=== PATIENT | male | born 1965 | race Caucasian/White ===

== ENCOUNTER 2021-03-31 12:36 | Inpatient (IN) | payer OTHER ==
[~2021-03-31] VITALS: Ht 175.3 cm; Wt 92.1 kg
[2021-03-31] MEDS ORDERED: IV NORMAL SALINE 1000 ML BAG IV ONE (12:45)
[2021-03-31] MEDS ORDERED: methylPREDNISolone SOD SUCC 125 MG/2 ML VIAL IV ONE (12:45)
[2021-03-31] MEDS ORDERED: IPRATROPIUM BROMIDE 0.5 MG/2.5 ML NEBU NEB ONE (12:45)
[2021-03-31] MEDS ORDERED: ALBUTEROL SULFATE 2.5 MG/3 ML NEBU NEB ONE ×2 (12:45→16:45)
[2021-03-31] MEDS ORDERED: FLUT1DIS27 INH (12:59)
[2021-03-31] MEDS ORDERED: LISINOPRIL PO (12:59)
--- NOTE | 2021-03-31 13:05 | NUR ---
Pt is in room #2a. dr Rodriguez evaluated the pt.
[2021-03-31] MEDS ORDERED: ALBUTEROL SULFATE 2.5 MG/3 ML NEBU ONE ×2 (13:07→16:46)
[2021-03-31] MEDS ORDERED: IPRATROPIUM BROMIDE 0.5 MG/2.5 ML NEBU ONE (13:07)
[2021-03-31 13:09] LABS: HEMATOCRIT 39.4 % (36.7-47.1); MEAN CORPUSCULAR HEMOGLOBIN 28.5 uug (23.8-33.4); PLATELET COUNT (AUTO) 331 K/uL (152-348)
[2021-03-31 13:16] LABS: CREATININE 1.1 mg/dL (0.6-1.3); POTASSIUM 3.6 mmol/L (3.5-5.1)
[2021-03-31] MEDS ORDERED: methylPREDNISolone SOD SUCC 125 MG/2 ML VIAL ONE (13:21)
[2021-03-31 13:26] LABS: BILIRUBIN,DIRECT 0.1 mg/dL (0.0-0.2); BILIRUBIN,TOTAL 0.3 mg/dL (0.2-1.0); TOTAL PROTEIN, SERUM 7.4 g/dL (6.4-8.2)
[2021-03-31] MEDS ORDERED: AZITHROMYCIN IV 500 MG in IV DEXTROSE 5% 250 ML IV ONE (15:00)
[2021-03-31] MEDS ORDERED: CEFTRIAXONE 1 G in IV DEXTROSE 5% 50 ML IV ONE (15:00)
[2021-03-31] MEDS ORDERED: CEFTRIAXONE /D5W 50ML IVPB **ER PYXIS IV ONE (15:15)
[2021-03-31] MEDS ORDERED: AZITHROMYCIN 500MG/ D5W 250ML IVPB **ER PYXIS ONLY IV ONE (15:15)
--- NOTE | 2021-03-31 18:58 | NUR ---
RPORT GIVEN TO THE RESIDENT CARE MANAGER RN RN.
[2021-03-31] MEDS ORDERED: HYDROCODONE/APAP 5-325MG TABLET PO PRN (20:45)
[2021-03-31] MEDS ORDERED: CLONIDINE HCL 0.1 MG TABLET PO ONE (20:45)
[2021-03-31] MEDS ORDERED: ONDANSETRON 4 MG/2 ML VIAL IV PRN (20:45)
[2021-03-31] MEDS ORDERED: ACETAMINOPHEN 325 MG TABLET PO PRN (20:45)
[2021-03-31] MEDS ORDERED: MAGNESIUM HYDROXIDE 30 ML LIQUID UDC PO PRN (20:45)
[2021-03-31] MEDS ORDERED: Z GUARD REMEDY PASTE 57 GM TUBE TOP PRN (20:45)
--- NOTE | 2021-03-31 20:50 | NUR ---
LEISAD made aware of patient systolic blood pressure 170. Expecting order for clonidine 0.2mg PO.
[2021-03-31] MEDS ORDERED: CLONIDINE HCL 0.2 MG TABLET ONE (20:55)
--- NOTE | 2021-03-31 21:01 | NUR ---
MARCIAL Montoya updated with patient blood pressure.
[2021-03-31 21:35] VITALS: BP 162/105
--- NOTE | 2021-03-31 21:38 | NUR ---
Patient transported to inpatient by Clinical Esthetician.
--- NOTE | 2021-03-31 21:40 | NUR ---
RECEIVED PT FROM ER VIA [facility]. UNDER THE CARE OF DR. MELISSA VICTORIA. DX: COPD EXACERBATION. INTERMEDIATE ASSESSMENT DONE.PT ON 5L NASAL CANNULA. ADMISSION PROCESS AND CARE PLAN INITIATED. SAFETY AND COMFORT PROVIDED. WILL CONTINUE TO MONITOR.
[2021-03-31 21:56] LABS: THYROID STIMULATING HORMONE 0.265 mIU/mL (0.358-3.740)
[2021-03-31] MEDS: methylPREDNISolone SOD SUCC 40 MG/ML VIAL IV SCH (22:18)
[2021-03-31] MEDS: BUMETANIDE 1 MG/4 ML VIAL IV SCH (22:19)
[2021-03-31] MEDS: DOCUSATE SODIUM 100 MG CAPSULE PO SCH (22:21)
[2021-03-31] MEDS: LISINOPRIL 5 MG TABLET PO SCH (22:22)
[2021-03-31] MEDS: ENOXAPARIN SODIUM 40 MG/0.4 ML DISP.SYRIN SQ SCH (22:22)
[2021-03-31] MEDS ORDERED: hydrALAZINE HCL 20 MG/1 ML VIAL IV PRN (22:30)
[2021-03-31 22:46] LABS: *BILIRUBIN,URIN NEGATIVE (NEGATIVE); *CLARITY,URINE CLEAR (CLEAR); *COLOR,URINE YELLOW (YELLOW); *KETONES,URINE NEGATIVE (NEGATIVE); LEUKOCYTE ESTERASE ,URINE NEGATIVE (NEGATIVE); NITRITE, URINE NEGATIVE (NEGATIVE); PH,URINE 5.5 (5.0-8.0); UGLUCOSE NEGATIVE (NEGATIVE)
[2021-03-31 22:50] LABS: *BLOOD, URINE TRACE (NEGATIVE)
[2021-03-31] MEDS: AMLODIPINE 10 MG TABLET PO SCH (22:51)
[2021-03-31] MEDS: ZOLPIDEM 5 MG TABLET PO PRN (22:51)
[2021-03-31 22:56] LABS: BACTERIA,URINE NONE SEEN /HPF (NONE SEEN); SQUAMOUS EPITHELIAL CELL,UR MODERATE /HPF (NONE SEEN)
[2021-03-31] MEDS: ALBUTEROL SULFATE 2.5 MG/ 0.5 ML NEBU NEB SCH (23:35)
[2021-03-31] MEDS: IPRATROPIUM BROMIDE 0.5 MG/2.5 ML NEBU NEB SCH (23:35)
[2021-04-01] VITALS: BP 156/103
[2021-04-01 04:03] VITALS: BP 159/87
[2021-04-01] MEDS: IPRATROPIUM BROMIDE 0.5 MG/2.5 ML NEBU NEB SCH ×6 (04:13→23:30)
[2021-04-01] MEDS: ALBUTEROL SULFATE 2.5 MG/ 0.5 ML NEBU NEB SCH ×6 (04:13→23:30)
[2021-04-01 06:44] LABS: HEMATOCRIT 41.8 % (36.7-47.1); MEAN CORPUSCULAR VOLUME 86.8 fL (73.0-96.2); PLATELET COUNT (AUTO) 336 K/uL (152-348)
--- NOTE | 2021-04-01 06:44 | NUR ---
NOTIFY MACHINE FELLER REGARDING PT HAVING 6BEATS VTACH AND SINUS TACHYCARDIA AFTERWARDS. OXYGEN DROPPED TO 84%.
--- NOTE | 2021-04-01 06:49 | NUR ---
AMEENA MENDIETA SIMULATION ENGINEER ORDERED CARDIOLOGY CONSULT AND ABG CONSULT.
[2021-04-01] MEDS: PANTOPRAZOLE SODIUM 40 MG TABLET.DR PO SCH (06:50)
[2021-04-01] MEDS: methylPREDNISolone SOD SUCC 40 MG/ML VIAL IV SCH ×3 (06:50→21:01)
--- NOTE | 2021-04-01 07:00 | NUR ---
Pt slept intermittently. Pt in no acute distress. Iv intact. Pt WAS PUT ON FACE MASK. Abg being drawn. Prescribed medication given and pt tolerated it well. PT had tendency to take off his oxygen.Pt refused his Protonix. Safety and comfort provided. All needs are met. Will endorse to incoming nurse for continuity of care.
[2021-04-01 07:26] LABS: BILIRUBIN,TOTAL 0.3 mg/dL (0.2-1.0); CREATININE 0.9 mg/dL (0.6-1.3); POTASSIUM 4.1 mmol/L (3.5-5.1); TOTAL PROTEIN, SERUM 8.4 g/dL (6.4-8.2)
[2021-04-01 07:28] LABS: ABG BASE EXCESS 0.6 mmol/L; ABG PCO2 69.9 mmHg (35.0-45.0); ABG PO2 185.7 mmHg (75.0-100.0); ABG SITE LEFT RADIAL; ABG TOTAL HEMOGLOBIN 14.9 G/dL (13.5-18.0); COHb 0.8 % (0.5-1.5); MetHb 0.2 % (0.0-1.5); O2Hb 98.4 % (94.0-97.0)
--- NOTE | 2021-04-01 08:00 | NUR ---
RECEIVED PATIENT IN BED WITH PERIODS OF DISORIENTATION AND CONFUSION, RR-25/MIN, SATURATING 88-90%. ABG results noted and dr alas made aware. patient to continue on BI-PAP to maintain saturation between 90-94%. sr/st on monitor.
--- NOTE | 2021-04-01 08:30 | NUR ---
PATIENT OFF BI-PAP FOR BREAKFAST, PATIENT TOLERATED SITTING POSITION AND ATE 100% OF FOOD PORTION. CLOSELY MONITORED
[2021-04-01] MEDS: ASPIRIN EC 81 MG TABLET.DR PO SCH (08:56)
[2021-04-01] MEDS: BUMETANIDE 1 MG/4 ML VIAL IV SCH ×2 (08:57→17:05)
[2021-04-01] MEDS: LISINOPRIL 5 MG TABLET PO SCH ×2 (08:57→20:15)
[2021-04-01] MEDS: AMLODIPINE 10 MG TABLET PO SCH (08:57)
[2021-04-01] MEDS ORDERED: FLUTICASONE/SALMETEROL 100/50 1 INH DISK.W.DEV INH SCH (09:00)
[2021-04-01] MEDS: METOPROLOL TARTRATE 25 MG TABLET PO SCH ×2 (09:05→20:15)
[2021-04-01] MEDS: DOXYCYCLINE HYCLATE IV 100 MG in IV DEXTROSE 5% 100 ML IV SCH ×2 (09:05→21:09)
[2021-04-01] MEDS: FLUTICASONE/VILANTEROL 1 EACH BLST.W.DEV INH SCH (09:05)
--- NOTE | 2021-04-01 10:30 | NUR ---
seen by dr bergeron advise that patient be moved to isolation as PUI pending PCR results
--- NOTE | 2021-04-01 11:00 | NUR ---
IN-LINE TX NOT GIVEN DUE TO NEW PUI STATUS. PLACED BACK ON BIPAP WITH ORDERED SETTINGS.
[2021-04-01 12:22] VITALS: BP 135/85
[2021-04-01] MEDS: CEFTRIAXONE 1 G in IV DEXTROSE 5% 50 ML IV SCH (14:27)
[2021-04-01 15:45] LABS: *AMPHETAMINE, URINE POSITIVE (NEGATIVE); *CANNABINOID, URINE POSITIVE (NEGATIVE); *COCCAINE, URINE NEGATIVE (NEGATIVE); *OPIATE, URINE NEGATIVE (NEGATIVE); *PHENCYCLIDINE SCREEN,URINE NEGATIVE (NEGATIVE)
[2021-04-01 16:00] VITALS: BP 122/68
--- NOTE | 2021-04-01 16:09 | NUR ---
report given to CHARIS
--- NOTE | 2021-04-01 17:15 | NUR ---
Received a patient from [facility] around 16:00. Per report, patient is A/O X 3 to person, place. Pt. affect is cooperative. Patient is in 4 liters of oxygen, 94% of saturation. V- tach at 06:15 am, currently stable. Xray chest results showing cardio megaly, enlargement of the cardiac silhouette. Arterial blood gas complete, CO2 69.9 high, and O2 185.7 high. Ambulates without assistance. Continent of bladder and bowel. Butemide 1 mg bid for edema as prescribed. Fall and safety precautions implemented.
--- NOTE | 2021-04-01 19:30 | NUR ---
Received patient in bed, in semi fowlers position. Patient is in distress, SOB , shallow breathing noted and perspiration, 02 sat 82-84%. He is a mouth breather, NC removed and placed on a simple mask, 02 increased from 4L to 5 L, 02 sats improved to 94-95. IV to right FA , intact and patent. He is asleep and easily arousable. Alert to self and situation. Continues in telemetry, NSR 100-103. Safety measures initiated, call light within reach.
[2021-04-01] MEDS: DOCUSATE SODIUM 100 MG CAPSULE PO SCH (20:14)
[2021-04-01] MEDS: ENOXAPARIN SODIUM 40 MG/0.4 ML DISP.SYRIN SQ SCH (20:18)
[2021-04-01 20:20] VITALS: BP 157/99
--- NOTE | 2021-04-01 23:00 | NUR ---
Patient is doing well, able to decrease 02 to 4L/ min and change back to NC. 02sats 92-93. Still noted with occasional moist cough and perspiration. States he perspires heavily normally.
[2021-04-02 00:15] VITALS: BP 150/85
--- NOTE | 2021-04-02 02:00 | NUR ---
Patient is doing well, able to decrease 02 to 3L/ min via NC- 02sats 90-93%.
[2021-04-02] MEDS: ALBUTEROL SULFATE 2.5 MG/ 0.5 ML NEBU NEB SCH ×6 (02:36→22:42)
[2021-04-02] MEDS: IPRATROPIUM BROMIDE 0.5 MG/2.5 ML NEBU NEB SCH ×6 (02:36→22:42)
[2021-04-02 04:26] VITALS: BP 160/95
--- NOTE | 2021-04-02 05:58 | NUR ---
Slept intermittently for remainder of shift. Still noted with poor concentration, Denies any pain, SOB is improved. Continues to sat 90-91% on 3L o2 via NC. Continuous [address] On Telemetry, NSR HR 100-105. Gown and linen change provided fro perspiration, no fever. Patient asked fro snacks 2 times this shift. Call light within reach.
[2021-04-02] MEDS: methylPREDNISolone SOD SUCC 40 MG/ML VIAL IV SCH ×3 (06:04→21:17)
[2021-04-02] MEDS: PANTOPRAZOLE SODIUM 40 MG TABLET.DR PO SCH (06:04)
--- NOTE | 2021-04-02 06:30 | NUR ---
Patient 02 saturation is 94-95% on 3L/min via NC. Able to decrease 02 to 2L/min and patient saturation remains unchanged. NO changes in mental status. ABG pending for this AM.
[2021-04-02 07:44] LABS: ABG BASE EXCESS 6.5 mmol/L; ABG HCO3 32.1 mmol/L; ABG PCO2 49.4 mmHg (35.0-45.0); ABG PH 7.431 (7.350-7.450); ABG PO2 61.8 mmHg (75.0-100.0); ABG SITE RIGHT BRACHIAL; ABG TOTAL HEMOGLOBIN 14.7 G/dL (13.5-18.0); COHb 0.5 % (0.5-1.5); MetHb 0.1 % (0.0-1.5); O2Hb 91.2 % (94.0-97.0); VENT MODE Nasal Cannula
[2021-04-02 08:00] VITALS: BP 168/100
[2021-04-02] MEDS: FLUTICASONE/VILANTEROL 1 EACH BLST.W.DEV INH SCH (09:00)
[2021-04-02] MEDS: ASPIRIN EC 81 MG TABLET.DR PO SCH (09:39)
[2021-04-02] MEDS: BUMETANIDE 1 MG/4 ML VIAL IV SCH (09:39)
[2021-04-02] MEDS: DOXYCYCLINE HYCLATE IV 100 MG in IV DEXTROSE 5% 100 ML IV SCH ×2 (09:42→21:32)
[2021-04-02] MEDS: METOPROLOL TARTRATE 25 MG TABLET PO SCH ×2 (09:56→20:29)
[2021-04-02] MEDS: LISINOPRIL 5 MG TABLET PO SCH ×2 (09:56→20:29)
[2021-04-02] MEDS: AMLODIPINE 10 MG TABLET PO SCH (09:56)
[2021-04-02 12:00] VITALS: BP 138/79
[2021-04-02 14:06] LABS: A/G RATIO 0.6 (0.7-1.7); ALBUMIN 2.5 g/dL (2.9-4.4); ALPHA-1-GLOBULIN 0.4 g/dL (0.0-0.4); BETA GLOBULIN 1.1 g/dL (0.7-1.3); GAMMA GLOBULIN 1.7 g/dL (0.4-1.8); GLOBULIN, TOTAL 4.3 g/dL (2.2-3.9); M-SPIKE Not Observed g/dL (Not Observed)
--- NOTE | 2021-04-02 14:26 | NUR ---
Pt is a/o x 2, intermittently sleeping thus far. Pt presents with Normal sinus rhythm at this time, saturating 93-94% on 2 L NC. Patients PCR is currently pending, echo completed. No signs of acute distress, no complaint of pain or discomfort at this time. MRSA swab sent to lab from both nares. Sputum culture pending, educated client to spit up into container when expectorant comes up from coughing. Call light within reach, Will continue to monitor.
[2021-04-02] MEDS: CEFTRIAXONE 1 G in IV DEXTROSE 5% 50 ML IV SCH (14:44)
[2021-04-02 16:00] VITALS: BP 136/81
--- NOTE | 2021-04-02 16:35 | NUR ---
Pt has been titrated to 1.5L NC, saturating 91-92%. per Dr Medina, titrate slowly and maintain O2 saturation between 88-92%
[2021-04-02 16:54] LABS: HEMATOCRIT 43.1 % (36.7-47.1); MEAN CORPUSCULAR VOLUME 85.7 fL (73.0-96.2); PLATELET COUNT (AUTO) 361 K/uL (152-348)
[2021-04-02 17:06] LABS: ALANINE AMINOTRANSFERASE 82 U/L (16-63); ALKALINE PHOSPHATASE 128 U/L (50-136); ASPARTATE AMINOTRANSFERASE 56 U/L (15-37); BILIRUBIN,DIRECT < 0.1 mg/dL (0.0-0.2); BILIRUBIN,TOTAL 0.3 mg/dL (0.2-1.0); CARBON DIOXIDE 34 mmol/L (21-32); CHLORIDE 99 mmol/L (98-107); CREATININE 1.1 mg/dL (0.6-1.3); GLUCOSE 156 mg/dL (74-106); POTASSIUM 3.9 mmol/L (3.5-5.1); UREA NITROGEN, BLOOD 33 mg/dL (7-18)
[2021-04-02 17:54] LABS: BAND % (MANUAL) 2 % (0-10); LYMPHOCYTES % (MANUAL) 7 % (20-40); MONOCYTES % (MANUAL) 6 % (2-10); NEUTROPHILS % (MANUAL) 85 % (42-75)
--- NOTE | 2021-04-02 17:55 | NUR ---
pt has reported critical lab value: WBC 30.3. MD notified.
--- NOTE | 2021-04-02 19:30 | NUR ---
Patient is tele monitor, showing sinus rhythm with HR of 95bpm.
--- NOTE | 2021-04-02 19:30 | NUR ---
Received patient lying in bed. AAOx2-3. On 1.5L O2 via nasal cannula, saturating at 93%. Patient is noted as a mouth breather, denies SOB, chest pain or dizziness. IV on R F.A intact and patent. Instructed patient to expectorate for phlegm for sputum culture, when urge to cough occurs. Safety and comfort measures initiated. Bed in locked position, call light button and frequently used items within reach.
[2021-04-02] MEDS: DOCUSATE SODIUM 100 MG CAPSULE PO SCH (20:28)
[2021-04-02] MEDS: ENOXAPARIN SODIUM 40 MG/0.4 ML DISP.SYRIN SQ SCH (20:32)
[2021-04-02 20:46] VITALS: BP 132/87
--- NOTE | 2021-04-02 22:30 | NUR ---
Patient complained of right arm pain, assessed IV site, appears infiltrated. Attempted to reinsert, however, unsuccessful. Called ER for assistance.
--- NOTE | 2021-04-02 23:40 | NUR ---
Notified WINDLASSER composite bond worker regarding multiple unsuccessful attempts to reinsert IV. WINDLASSER ordered for midline insertion. Called nursing musical instrument supervisor, she advised midline insertion nurse unable tonight. Might reinsert tomorrow.
[2021-04-03] VITALS (7 sets, daily range): BP systolic 142–173; BP diastolic 78–109
--- NOTE | 2021-04-03 00:56 | NUR ---
Reinserted IV access on R hand, gauge 22, intact and patent.
[2021-04-03] MEDS: ALBUTEROL SULFATE 2.5 MG/ 0.5 ML NEBU NEB SCH ×7 (02:32→23:24)
[2021-04-03] MEDS: IPRATROPIUM BROMIDE 0.5 MG/2.5 ML NEBU NEB SCH ×7 (02:32→23:24)
--- NOTE | 2021-04-03 02:45 | NUR ---
Collected patient's expectorate for sputum culture, sent to lab for review.
[2021-04-03] MEDS: methylPREDNISolone SOD SUCC 40 MG/ML VIAL IV SCH ×3 (05:10→21:27)
[2021-04-03] MEDS: PANTOPRAZOLE SODIUM 40 MG TABLET.DR PO SCH (06:15)
--- NOTE | 2021-04-03 06:50 | NUR ---
Patient slept intermittently through the night, with episodes of labored breathing. O2 titrated down to 1L, via NC, saturating 88-92%.On tele monitor showing, sinus rhythm with episodes of sinus tachycardia with HR ranging from 96-102bpm. Patient was noted to have an elevated blood pressure of 173/109, PRN apresoline IV was given as ordered, now at 152/84mmHg IV access on right hand still patent and intact. All needs were attended to and met. Safety and comfort measures were maintained. Will endorse to dayshift nurse.
[2021-04-03 06:54] LABS: MEAN CORPUSCULAR HEMOGLOBIN 28.2 uug (23.8-33.4); MEAN CORPUSCULAR VOLUME 85.7 fL (73.0-96.2); PLATELET COUNT (AUTO) 384 K/uL (152-348)
[2021-04-03 07:17] LABS: CREATININE 1.2 mg/dL (0.6-1.3); POTASSIUM 3.7 mmol/L (3.5-5.1)
--- NOTE | 2021-04-03 08:05 | NUR ---
Pt received awake in his room, disheveled, irritable, pulled out his hep lock line. Pt is A/O x3. Pt is noted to have cough and wheezing. Pt periodically takes off his oxygen canula and disconnects tele monitor. Pt is reminded of importance to be monitored.
[2021-04-03 08:08] LABS: LYMPHOCYTES % (MANUAL) 5 % (20-40); MONOCYTES % (MANUAL) 1 % (2-10); NEUTROPHILS % (MANUAL) 89 % (42-75)
[2021-04-03 08:26] LABS: ABG BASE EXCESS 6.5 mmol/L; ABG HCO3 29.9 mmol/L; ABG PCO2 38.4 mmHg (35.0-45.0); ABG PH 7.509 (7.350-7.450); ABG PO2 52.6 mmHg (75.0-100.0); ABG SITE LEFT RADIAL; ABG TOTAL HEMOGLOBIN 16.6 G/dL (13.5-18.0); COHb 0.6 % (0.5-1.5); MetHb 0.1 % (0.0-1.5); O2Hb 88.6 % (94.0-97.0); VENT MODE ROOM AIR
[2021-04-03] MEDS: FLUTICASONE/VILANTEROL 1 EACH BLST.W.DEV INH SCH (09:00)
[2021-04-03] MEDS ORDERED: METOPROLOL TARTRATE 25 MG TABLET PO ONE (09:10)
[2021-04-03] MEDS: DOXYCYCLINE HYCLATE IV 100 MG in IV DEXTROSE 5% 100 ML IV SCH ×2 (09:32→20:18)
[2021-04-03] MEDS: ASPIRIN EC 81 MG TABLET.DR PO SCH (09:32)
[2021-04-03] MEDS: LISINOPRIL 5 MG TABLET PO SCH ×2 (09:43→20:18)
[2021-04-03] MEDS: AMLODIPINE 10 MG TABLET PO SCH (09:44)
[2021-04-03] MEDS ORDERED: POTASSIUM CHLORIDE 20 MEQ TAB.PRT.SR PO ONE ×2 (11:00→15:00)
[2021-04-03] MEDS ORDERED: ACETAzolamide SODIUM 500 MG VIAL IV SCH (11:00)
--- NOTE | 2021-04-03 11:53 | NUR ---
PT was noted to be throwing things around his room, slamming drawers and yelling and cusing.
[2021-04-03] MEDS ORDERED: ALPRAZOLAM 0.5 MG TABLET PO PRN (13:15)
[2021-04-03] MEDS: CEFTRIAXONE 1 G in IV DEXTROSE 5% 50 ML IV SCH (15:27)
[2021-04-03] MEDS: METOPROLOL TARTRATE 25 MG TABLET PO SCH (20:17)
[2021-04-03] MEDS: DOCUSATE SODIUM 100 MG CAPSULE PO SCH (20:17)
[2021-04-03] MEDS: ENOXAPARIN SODIUM 40 MG/0.4 ML DISP.SYRIN SQ SCH (20:20)
--- NOTE | 2021-04-03 21:14 | NUR ---
Patient in bed awake alert x4.Calm no s/s of distress noted. O2 at 2LPM va NC saturating at 98 %.Midline on left upper arm paten and intact.Infused IV ATB as ordered. No a/r noted.NSR on tele.Instructed patient not to disconnect Tele. Verbalized understanding.Patient requesting for his Ambien.Med given.will continue to monitor.
[2021-04-03] MEDS: ZOLPIDEM 5 MG TABLET PO PRN (23:22)
[2021-04-04] VITALS: BP 129/75
[2021-04-04] MEDS: ALBUTEROL SULFATE 2.5 MG/ 0.5 ML NEBU NEB SCH ×6 (03:30→23:30)
[2021-04-04] MEDS: IPRATROPIUM BROMIDE 0.5 MG/2.5 ML NEBU NEB SCH ×6 (03:30→23:30)
[2021-04-04] MEDS: methylPREDNISolone SOD SUCC 40 MG/ML VIAL IV SCH ×2 (05:06→20:46)
[2021-04-04 05:28] VITALS: BP 141/89
[2021-04-04] MEDS: PANTOPRAZOLE SODIUM 40 MG TABLET.DR PO SCH (06:06)
[2021-04-04 06:51] LABS: HEMATOCRIT 47.6 % (36.7-47.1); MEAN CORPUSCULAR HEMOGLOBIN 28.2 uug (23.8-33.4); MEAN CORPUSCULAR VOLUME 86.6 fL (73.0-96.2); PLATELET COUNT (AUTO) 436 K/uL (152-348)
[2021-04-04 07:25] LABS: CREATININE 1.2 mg/dL (0.6-1.3); MAGNESIUM 2.6 mg/dL (1.8-2.4); PHOSPHOROUS 5.3 mg/dL (2.5-4.9); POTASSIUM 4.7 mmol/L (3.5-5.1)
--- NOTE | 2021-04-04 07:30 | NUR ---
Received patient report from table games shift manager nurse. Arrived to patient resting in bed, with no apparent signs of distress or discomfort. Patient is awake, alert, and oriented x 4. IV site is intact and patent. 2 L of Oxygen via Nasal Canula saturating at 91-93%. Bed left in lowest position with call light within reach. Will continue to monitor patient throughout shift.
[2021-04-04 07:51] LABS: ABG BASE EXCESS -1.2 mmol/L; ABG HCO3 23.1 mmol/L; ABG PCO2 37.8 mmHg (35.0-45.0); ABG PH 7.404 (7.350-7.450); ABG PO2 74.7 mmHg (75.0-100.0); ABG SITE RIGHT RADIAL; ABG TOTAL HEMOGLOBIN 16.5 G/dL (13.5-18.0); COHb 0.5 % (0.5-1.5); MetHb 0.2 % (0.0-1.5); O2Hb 94.1 % (94.0-97.0); VENT MODE Nasal Cannula
[2021-04-04 07:53] LABS: BAND % (MANUAL) 1 % (0-10); LYMPHOCYTES % (MANUAL) 11 % (20-40); METAMYELOCYTES % 2 % (0-1); MONOCYTES % (MANUAL) 1 % (2-10); MYELOCYTES % 3 % (0-0); NEUTROPHILS % (MANUAL) 82 % (42-75)
[2021-04-04] MEDS: ASPIRIN EC 81 MG TABLET.DR PO SCH (09:03)
[2021-04-04] MEDS: DOXYCYCLINE HYCLATE IV 100 MG in IV DEXTROSE 5% 100 ML IV SCH ×2 (09:06→20:46)
[2021-04-04] MEDS: METOPROLOL TARTRATE 25 MG TABLET PO SCH ×2 (09:28→20:40)
[2021-04-04] MEDS: LISINOPRIL 5 MG TABLET PO SCH ×2 (09:29→20:39)
[2021-04-04] MEDS: AMLODIPINE 10 MG TABLET PO SCH (09:29)
[2021-04-04] MEDS: FLUTICASONE/VILANTEROL 1 EACH BLST.W.DEV INH SCH (09:30)
[2021-04-04 11:53] VITALS: BP 127/79
[2021-04-04] MEDS: CEFTRIAXONE 1 G in IV DEXTROSE 5% 50 ML IV SCH (14:49)
[2021-04-04 16:01] VITALS: BP 129/84
--- NOTE | 2021-04-04 19:04 | NUR ---
Patient resting comfortably with no apparent signs of distress or discomfort during day shift. Patient received medication well throughout shift. Bed left in lowest position. Call light within reach. IV site intact and patent. Will endorse information to shift nurse manager nurse regarding patient.
[2021-04-04 20:00] VITALS: BP 134/92
[2021-04-04] MEDS: DOCUSATE SODIUM 100 MG CAPSULE PO SCH (20:39)
[2021-04-04] MEDS: ENOXAPARIN SODIUM 40 MG/0.4 ML DISP.SYRIN SQ SCH (20:41)
[2021-04-05] MEDS: ZOLPIDEM 5 MG TABLET PO PRN ×2 (00:09→22:51)
[2021-04-05] MEDS: ALBUTEROL SULFATE 2.5 MG/ 0.5 ML NEBU NEB SCH ×6 (03:21→23:30)
[2021-04-05] MEDS: IPRATROPIUM BROMIDE 0.5 MG/2.5 ML NEBU NEB SCH ×6 (03:21→23:30)
[2021-04-05 04:00] VITALS: BP 138/88
[2021-04-05] MEDS: PANTOPRAZOLE SODIUM 40 MG TABLET.DR PO SCH (06:03)
--- NOTE | 2021-04-05 06:47 | NUR ---
PATIENT SLEPT WELL THROUGHOUT THE NIGHT. CONTINUED ON O21L NC SATING 90-92%. VS WNL. DENIES ANY PAIN OR DISCOMFORT. CALL LIGHT IN REACH. ALL NEEDS ATTENDED. WILL CONTINUE TO MONITOR AND ASSESS.
[2021-04-05] MEDS: FLUTICASONE/VILANTEROL 1 EACH BLST.W.DEV INH SCH (09:03)
[2021-04-05] MEDS: methylPREDNISolone SOD SUCC 40 MG/ML VIAL IV SCH ×2 (09:03→20:27)
[2021-04-05] MEDS: DOXYCYCLINE HYCLATE IV 100 MG in IV DEXTROSE 5% 100 ML IV SCH ×2 (09:04→20:27)
[2021-04-05] MEDS: AMLODIPINE 10 MG TABLET PO SCH (09:04)
[2021-04-05] MEDS: METOPROLOL TARTRATE 25 MG TABLET PO SCH ×2 (09:04→20:24)
[2021-04-05] MEDS: LISINOPRIL 5 MG TABLET PO SCH ×2 (09:05→20:25)
[2021-04-05] MEDS: ASPIRIN EC 81 MG TABLET.DR PO SCH (09:05)
[2021-04-05 09:40] LABS: HEMATOCRIT 49.2 % (36.7-47.1); MEAN CORPUSCULAR HEMOGLOBIN 28.2 uug (23.8-33.4); MEAN CORPUSCULAR VOLUME 86.7 fL (73.0-96.2); PLATELET COUNT (AUTO) 434 K/uL (152-348)
--- NOTE | 2021-04-05 11:07 | NUR ---
RELAYED TO DR. WILKINS THAT PT'S PCR IS (-) AFTER CONFIRMING WITH LAB. PER PRE[facility]BALLO ISOLATION.
[2021-04-05 12:15] VITALS: BP 147/97
[2021-04-05 12:56] LABS: CREATININE 1.2 mg/dL (0.6-1.3); MAGNESIUM 2.6 mg/dL (1.8-2.4); PHOSPHOROUS 3.2 mg/dL (2.5-4.9)
[2021-04-05] MEDS: CEFTRIAXONE 1 G in IV DEXTROSE 5% 50 ML IV SCH (14:44)
[2021-04-05 16:01] VITALS: BP 140/89
[2021-04-05 20:00] VITALS: BP 139/84
[2021-04-05] MEDS: DOCUSATE SODIUM 100 MG CAPSULE PO SCH (20:24)
[2021-04-05] MEDS: ENOXAPARIN SODIUM 40 MG/0.4 ML DISP.SYRIN SQ SCH (20:25)
[2021-04-06 04:00] VITALS: BP 139/79
[2021-04-06] MEDS: PANTOPRAZOLE SODIUM 40 MG TABLET.DR PO SCH (06:32)
[2021-04-06] MEDS: ALBUTEROL SULFATE 2.5 MG/ 0.5 ML NEBU NEB SCH ×6 (08:35→23:30)
[2021-04-06] MEDS: IPRATROPIUM BROMIDE 0.5 MG/2.5 ML NEBU NEB SCH ×6 (08:35→23:30)
[2021-04-06] MEDS: ASPIRIN EC 81 MG TABLET.DR PO SCH (08:57)
[2021-04-06] MEDS: AMLODIPINE 10 MG TABLET PO SCH (08:57)
[2021-04-06] MEDS: DOXYCYCLINE HYCLATE IV 100 MG in IV DEXTROSE 5% 100 ML IV SCH (08:58)
[2021-04-06] MEDS: METOPROLOL TARTRATE 25 MG TABLET PO SCH ×2 (08:58→20:20)
[2021-04-06] MEDS: methylPREDNISolone SOD SUCC 40 MG/ML VIAL IV SCH (08:59)
[2021-04-06] MEDS: LISINOPRIL 20 MG TABLET PO SCH ×2 (09:08→20:20)
[2021-04-06] MEDS: FLUTICASONE/VILANTEROL 1 EACH BLST.W.DEV INH SCH (10:11)
[2021-04-06 12:25] VITALS: BP 126/79
[2021-04-06] MEDS: CEFTRIAXONE 1 G in IV DEXTROSE 5% 50 ML IV SCH (15:10)
[2021-04-06 15:31] VITALS: BP 125/64
[2021-04-06] MEDS: predniSONE 20 MG TABLET PO SCH (17:56)
--- NOTE | 2021-04-06 19:30 | NUR ---
patient remained stable during the shift. MIdline dressing changed. All due meds given. All needs attended. No distress identified. will continue plan of care.
[2021-04-06 20:00] VITALS: BP 125/77
[2021-04-06] MEDS: DOCUSATE SODIUM 100 MG CAPSULE PO SCH (20:20)
[2021-04-06] MEDS: ENOXAPARIN SODIUM 40 MG/0.4 ML DISP.SYRIN SQ SCH (20:21)
[2021-04-06] MEDS: ZOLPIDEM 5 MG TABLET PO PRN (23:06)
[2021-04-07] MEDS: IPRATROPIUM BROMIDE 0.5 MG/2.5 ML NEBU NEB SCH ×4 (03:30→11:56)
[2021-04-07] MEDS: ALBUTEROL SULFATE 2.5 MG/ 0.5 ML NEBU NEB SCH ×4 (03:30→11:56)
[2021-04-07 04:00] VITALS: BP 129/77
[2021-04-07] MEDS: PANTOPRAZOLE SODIUM 40 MG TABLET.DR PO SCH (06:05)
--- NOTE | 2021-04-07 06:32 | NUR ---
Patient remained stable, no distress identified. Requested x1 prn for sleeping, effective. No other concern identified. All due meds given, all needs attended. Safety precaution maintained. Kept call light within reach. Will endorse to the next shift for continuity of care.
--- NOTE | 2021-04-07 07:30 | NUR ---
received patient laying in bed in no apparent distress. patient is alert and oriented x4 and able to make needs known. currently on r/a with spo2 95%, rr even and non-labored, 0 episode of sob at this time. patient with midline to right upper arm in place and patent heplock. no c/o pain or discomfort at this time. reminded patient to use call light for assistance. call light within reach, side rails up x2.
[2021-04-07] MEDS: ASPIRIN EC 81 MG TABLET.DR PO SCH (08:38)
[2021-04-07] MEDS: predniSONE 20 MG TABLET PO SCH (08:38)
[2021-04-07] MEDS: LISINOPRIL 20 MG TABLET PO SCH (08:39)
[2021-04-07] MEDS: METOPROLOL TARTRATE 25 MG TABLET PO SCH (08:40)
[2021-04-07] MEDS: FLUTICASONE/VILANTEROL 1 EACH BLST.W.DEV INH SCH (08:40)
[2021-04-07] MEDS: AMLODIPINE 10 MG TABLET PO SCH (08:40)
[2021-04-07 10:02] LABS: HEMATOCRIT 47.7 % (36.7-47.1); MEAN CORPUSCULAR HEMOGLOBIN 28.1 uug (23.8-33.4); MEAN CORPUSCULAR VOLUME 85.8 fL (73.0-96.2); PLATELET COUNT (AUTO) 349 K/uL (152-348)
[2021-04-07 11:38] VITALS: BP 119/79
--- NOTE | 2021-04-07 11:51 | NUR ---
received new orders for discharge, explained to patient he will be going home today, per patient i need clothes and a tap card. followed up with social media strategist who was able to find a shirt, jacket and pants for the patient. obtained tap card for patient as well.
--- NOTE | 2021-04-07 12:51 | NUR ---
reviewed all discharge orders with patient, patient states understanding. reminded patient to f/u with primary healthcare provider, to obtain vaccinations from primary healthcare provider if needed. to return to nearest er or call 911 if symptoms worsen, patient states understanding. belonging inventory reviewed with patient. all appropriate paperwork signed. patient states after i eat i will shower then i will be ok to go.
--- NOTE | 2021-04-07 13:18 | NUR ---
Clinical Social Work Note SW consult was requested for homelessness. Patient is a 55 year old male who appears alert and oriented x3. Patient appears with a withdrawn mood and flat affect. Patient stated that he is currently living in his car, but his friend has housing for him. SW asked patient details about this housing, but patient stated that he did not know details. SW shared information regarding different shelters and advised that most are located in [place]. Patient stated that he is going to look through the homeless packet, but he currently is going to utilize his friends support. Patient stated that his friend will pick him up upon discharge. ADEN spoke with Asif at [facility] ([address] [place] [phone]) who stated patient must go to access center to conduct an intake and see if there is a bed available. ADEN spoke with sales receptionist at [facility] ([address] [place] [phone] ) who stated they have walk ins all day and that patient must bring a copy of vaccination card. Plan: Patient will sign homeless waiver upon discharge. Patients discharge plan is to go home with his friend. SW will update location once it is verified.
--- NOTE | 2021-04-07 14:30 | NUR ---
patient finished shower, midline removed, no bleeding noted to site, dressing applied. patient stated he was going to take the bus. upon discharge v/s wnl, no c/o pain, rr even and non-labored, 0 sob. assisted patient downstairs onto lobby.
== END 2021-04-07 14:45 | disposition home or self-care (01) | DRG 720 ==
LOC: ER 12:36 → TELE3 18:48 → MEDSURG3 04-04 08:05
PROVIDERS: ADMIT Nurse Practitioner Acute Care; ATTEND Internal Medicine
DX: A41.9 Sepsis, unspecified organism (principal); J96.21 Acute and chronic respiratory failure with hypoxia; I21.A1 Myocardial infarction type 2; I50.31 Acute diastolic (congestive) heart failure; E43 Unspecified severe protein-calorie malnutrition; I42.9 Cardiomyopathy, unspecified; J15.9 Unspecified bacterial pneumonia; E88.09 Other disorders of plasma-protein metabolism, not elsewhere classified; E66.2 Morbid (severe) obesity with alveolar hypoventilation; I11.0 Hypertensive heart disease with heart failure; J96.22 Acute and chronic respiratory failure with hypercapnia; J44.0 Chronic obstructive pulmonary disease with (acute) lower respiratory infection; J44.1 Chronic obstructive pulmonary disease with (acute) exacerbation; D75.839 Thrombocytosis, unspecified; E78.5 Hyperlipidemia, unspecified; Z20.822 Contact with and (suspected) exposure to COVID-19; Z87.891 Personal history of nicotine dependence; J45.909 Unspecified asthma, uncomplicated; R73.03 Prediabetes; Z91.19 Patient's noncompliance with other medical treatment and regimen; I47.2 Ventricular tachycardia; F12.10 Cannabis abuse, uncomplicated; F15.90 Other stimulant use, unspecified, uncomplicated; Z79.51 Long term (current) use of inhaled steroids; Z68.30 Body mass index [BMI] 30.0-30.9, adult; I25.10 Atherosclerotic heart disease of native coronary artery without angina pectoris; B19.20 Unspecified viral hepatitis C without hepatic coma
CPT/HCPCS: 36415; 36600; 70030-TC; 71045; 83605; 83735; 84100; 84155; 84165; 84443; 85025; 86803; 87070; 87400; 87521; 87806; 93005; 93307; 94640; 94660; 94760; A4663; G0378; J0360; J0456; J0696; J1120; J1650; J2920; J2930; J3490; J3590; J7030; J7040; J7050; J7060; J7512; U0003